=== PATIENT | male | born 1970 | race Caucasian/White ===

== ENCOUNTER → 2021-01-26 | Outpatient (CLI) | payer OTHER ==
[~2021-01-26] MED LIST: CYCLOBENZAPRINE10 MG PO; IBUPROFEN800 MG PO; NEURONTIN600 MG PO; PRILOSEC OTC20 MG PO
== END ==
LOC: KOH-I 11:16
DX: M25.571 Pain in right ankle and joints of right foot (principal); M19.071 Primary osteoarthritis, right ankle and foot
CPT/HCPCS: 73610